=== PATIENT | female | born 1980 | race Caucasian/White ===

== ENCOUNTER 2017-03-21 19:36 | Emergency (ER) | payer OTHER ==
[2017-03-21 19:57] VITALS: BP 113/81; PULSE 74; RESP 16; TEMP 98.2; O2SAT 100
[2017-03-21] MEDS ORDERED: PROPARACAINE 0.5% 15 ML OPHT DROP OP ONE (19:58)
--- NOTE | 2017-03-21 20:14 | UCPHY ---
H & P Patient Type: Established Chief Complaint Nursing Narrative: pt. states was at work(1400 today) uncoiling cord,end of cord hit pt into left eye. Pain with photophobia. 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 Has had irritation in that eye since. No redness. No discharge. No visual changes. Does not wear contact lenses. No prior injuries. ROS: 10 point Review of Systems is negative except as noted in the HPI. Physical exam: General: Awake, alert, no acute distress Eye Exam Visual Acuity: Per nursing note EOM: Intact OU Visual Echavarria: Intact OU Pupil: Equal, round and reactive to light and accomodation OU External: Lids, lashes and margins normal OU Slit Lamp; Normal Conjuctiva, Iris normal, small superior corneal defect consistent with abrasion, Anterior chambers clear without cells or flare, no hyphema, normal angles Fluorosceine exam: There is fluorescein uptake with 2 vertical stripes in the 11 o'clock position overlying the upper Iris over to the sclera. No foreign body - Personal History LMP (Females 10-55): IUD In Place Current Tetanus Diphtheria and Acellular Pertussis (TDAP): Yes Tetanus Vaccine Date: 2010 - Medical/Surgical History Hx Asthma: No Hx Chronic Respiratory Disease: No Hx Diabetes: No Hx Cardiac Disease: No Hx Renal Disease: No Hx Cirrhosis: No Hx Alcoholism: No Hx HIV/AIDS: No Hx Splenectomy or Spleen Trauma: No Other PMH: MEd hx-depression. Surg-appy - Family History Significant Family History: No pertinent family hx - Social History Smoking Status: Never smoked Constitutional: Initial Vital Signs Temperature (C) 36.8 C 03/21/17 19:52 Heart Rate 74 03/21/17 19:52 Respiratory Rate 16 03/21/17 19:52 Blood Pressure 113/81 H 03/21/17 19:52 O2 Sat (%) 100 03/21/17 19:52 O2 Delivery Mode Room Air Allergies/Adverse Reactions: Penicillins Allergy (Verified 03/21/17 19:52) Sulfa (Sulfonamide Antibiotics) Allergy (Verified 03/21/17 19:52) Home Medications: Medication Instructions Recorded Celfrancesca 01/21/16 Medical Decision Making - Data Points Medications Given: Discontinued Medications Proparacaine HCl (Alcaine 0.5%) 2 drops OP EDNOW ONE Stop: 03/21/17 19:59 Last Admin: 03/21/17 20:03 Dose: 2 drops Departure - Departure Disposition: Home, Routine, Self-Care Clinical Impression: Corneal abrasion Condition: Good Instructions: Corneal Abrasion (ED) Additional Instructions: Apply erythromycin ointment to the affected eye every 4 hours while awake for the next 2 days. Follow up with workman's Comp doctor in 3-4 days if symptoms are not improving. Go to the emergency department for worsening pain, vision changes, fevers, chills, or any other concerns. Referrals: NONE *PRIMARY CARE P,. [Primary Care Provider] - As per Instructions - PQRS PQRS Measurement: NA
[2017-03-21] MEDS ORDERED: ERYTHROMYCIN 0.5% 1 GM OPHT.OINT ONE (20:21)
== END 2017-03-21 20:29 | disposition home or self-care (01) ==
LOC: CED 19:36
DX: S05.02XA Injury of conjunctiva and corneal abrasion without foreign body, left eye, initial encounter (principal); W22.8XXA Striking against or struck by other objects, initial encounter; Z88.0 Allergy status to penicillin; Z88.2 Allergy status to sulfonamides
CPT/HCPCS: 99214-PO; G0463-PO